=== PATIENT | female | born 1980 | race Caucasian/White ===

== ENCOUNTER → 2019-06-13 | Outpatient (CLI) | payer OTHER ==
[2019-06-13 13:20] LABS: BASO % 0.4 % (0.0-1.0); EOS # 0.3 10*3/uL (0.0-0.4); HEMATOCRIT 40.4 % (37.0-47.0); HEMOGLOBIN 13.4 g/dl (12.0-16.0); LYMPH # 1.6 10*3/uL (1.3-4.4); LYMPH % 22.6 % (27.0-41.0); MEAN CELL VOLUME 90.2 fl (81.0-99.0); MEAN CORPUSCULAR HGB 29.9 pg (27.0-31.0); MEAN CORPUSCULAR HGB CONC 33.2 g/dl (33.0-37.0); MEAN PLATELET VOLUME 9.5 fl (9.6-12.3); MONO # 0.6 10*3/uL (0.1-1.0); NEUT # 4.5 10*3/uL (2.3-7.9); NEUT % 63.7 % (47.0-73.0); PLATELET COUNT AUTOMATED 320 10*3/uL (130-400); RED BLOOD COUNT 4.48 10*6/uL (4.10-5.10); RED CELL DISTRI WIDTH 13.3 % (0-14.5); RETICULOCYTE % 1.95 % (0.50-2.50); WHITE BLOOD COUNT 7.1 10*3/uL (4.8-10.8)
[2019-06-13 13:48] LABS: BACTERIA 3+; EPITHELIAL CELLS 15-20; MUCOUS 2+
[2019-06-13 13:49] LABS: BILIRUBIN NEGATIVE (NEGATIVE); CLARITY CLOUDY (CLEAR); COLOR YELLOW (YELLOW); GLUCOSE NEGATIVE (NEGATIVE); KETONE NEGATIVE (NEGATIVE)
[2019-06-13 13:50] LABS: ALBUMIN 3.5 gm/dl (3.1-4.5); ALKALINE PHOSPHATASE 163 U/L (45-117); BLOOD 3+ (NEGATIVE); BUN 11 mg/dl (7-24); CHLORIDE 109 mmol/L (98-107); CHOLESTEROL 172 mg/dL (<200); CREATININE 1.16 mg/dL (0.55-1.02); GAMMA GLUTAMYL TRANSPEPTIDASE 93 U/L (5-55); HDL CHOLESTEROL 36 mg/dl (40-60); IRON 46 ug/dL (50-170); LDL CHOLESTEROL 103 mg/dL (9-159); NITRITE NEGATIVE (NEGATIVE); SGOT/AST 21 IU/L (3-35); SGPT/ALT 55 U/L (12-78); SODIUM 139 mmol/L (136-145); T3 UPTAKE 29 % (31-39); THYROXINE (T4) TOTAL 9.4 ug/dl (4.8-13.9); TOTAL IRON BINDING CAPACITY 279 ug/dl (250-450); TOTAL PROTEIN 7.8 gm/dL (6.4-8.2); TRIGLYCERIDES 164 mg/dl (<150); UROBILINOGEN 0.2 E.U./dl (0.2-1.0); VLDL CHOLESTEROL 33 mg/dL (6-40)
[2019-06-13 13:51] LABS: LEUKO ESTERASE 1+ (NEGATIVE)
[2019-06-13 14:07] LABS: FERRITIN 83.4 ng/mL (10.0-291.0); VITAMIN D, 25-HYDROXY 12.2 ng/mL (30-100)
[2019-06-14 05:05] LABS: RHEUMATOID ARTHRITIS FACTOR <10.0 IU/mL (0.0-13.9)
[2019-06-14 12:05] LABS: ANTI-DSDNA ANTIBODIES 096339 <1 IU/mL (0-9)
== END | disposition home or self-care (01) ==
LOC: LAB 12:48
PROVIDERS: Family Medicine
DX: R79.89 Other specified abnormal findings of blood chemistry (principal); R53.83 Other fatigue; R74.8 Abnormal levels of other serum enzymes; E55.9 Vitamin D deficiency, unspecified

== ENCOUNTER → 2019-06-19 | Outpatient (CLI) | payer OTHER ==
[2019-06-20 08:08] LABS: RHEUMATOID ARTHRITIS FACTOR 10.2 IU/mL (0.0-13.9)
[2019-06-20 13:06] LABS: ANTI-DSDNA ANTIBODIES 096339 <1 IU/mL (0-9)
== END | disposition home or self-care (01) ==
LOC: LAB 12:17
PROVIDERS: Family Medicine
DX: E55.9 Vitamin D deficiency, unspecified (principal); R53.83 Other fatigue; R79.89 Other specified abnormal findings of blood chemistry

== ENCOUNTER 2024-04-08 01:03 | Inpatient (IN) | payer SELFPAY ==
[2024-04-08] VITALS (7 sets, daily range): BP systolic 115–168; BP diastolic 58–105
[~2024-04-08] VITALS: Ht 157.5 cm; Wt 101.7 kg
[2024-04-08 01:33] LABS: BASO # 0.1 10*3/uL (0.0-0.1); BASO % 0.5 % (0.0-1.0); EOS # 0.2 10*3/uL (0.0-0.4); EOS % 1.8 % (1.0-4.0); HEMATOCRIT 41.3 % (37.0-47.0); MEAN CELL VOLUME 89.4 fl (81.0-99.0); MEAN CORPUSCULAR HGB 28.8 pg (27.0-31.0); MEAN CORPUSCULAR HGB CONC 32.2 g/dl (33.0-37.0); MEAN PLATELET VOLUME 9.6 fl (9.6-12.3); MONO # 0.8 10*3/uL (0.1-1.0); MONO % 7.4 % (3.0-9.0); NEUT # 7.1 10*3/uL (2.3-7.9); NEUT % 68.6 % (47.0-73.0); PLATELET COUNT AUTOMATED 305 10*3/uL (130-400); RED BLOOD COUNT 4.62 10*6/uL (4.10-5.10); WHITE BLOOD COUNT 10.3 10*3/uL (4.8-10.8)
[2024-04-08 01:47] LABS: ACT PARTIAL THROMBO TIME 23.2 SECONDS (20.0-32.1)
[2024-04-08 01:53] LABS: BUN 14 mg/dl (9-23); CHLORIDE 107 mmol/L (98-107); POTASSIUM 3.5 mmol/L (3.4-5.1)
[2024-04-08] MEDS ORDERED: SODIUM CHLORIDE 0.9% 1,000 ML IV ONE (02:00)
[2024-04-08] MEDS ORDERED: ACETAMINOPHEN 325 MG TAB PO PRN (02:35)
[2024-04-08] MEDS ORDERED: BISACODYL 5 MG TAB PO PRN (02:35)
[2024-04-08] MEDS ORDERED: ACETAMINOPHEN 650 MG SUPP R PRN (02:35)
[2024-04-08] MEDS ORDERED: TEMAZEPAM 15 MG CAP PO PRN (02:35)
[2024-04-08] MEDS ORDERED: Acetaminophen/Hydrocodone 5 MG/325 MG TABLET PO PRN (02:35)
[2024-04-08] MEDS ORDERED: Ondansetron Hydrochloride 4 MG/2 ML VIAL IV PRN (02:35)
[2024-04-08] MEDS ORDERED: MORPHINE Sulfate 2 MG/ML SYR IV PRN (02:35)
[2024-04-08] MEDS ORDERED: BISACODYL 10 MG SUPP R PRN (02:35)
[2024-04-08] MEDS ORDERED: Magnesium Hydroxide 30 ML UDC PO PRN (02:35)
[2024-04-08] MEDS ORDERED: IOHEXOL 350 MG/ML 100 ML VIAL IV ONE (02:40)
[2024-04-08] MEDS ORDERED: SODIUM CHLORIDE 0.9% 100 ML BAG IV ONE (02:40)
[2024-04-08 03:09] LABS: BILIRUBIN Negative (Negative); BLOOD Negative (Negative); CLARITY Cloudy (Clear); COLOR Yellow (Yellow); GLUCOSE Negative (Negative); KETONE Negative (Negative); LEUKO ESTERASE 3+ (Negative); NITRITE Negative (Negative); SPECIFIC GRAVITY 1.015 (1.001-1.030); UROBILINOGEN 0.2 E.U./dl (0.0-1.0)
[2024-04-08 03:17] LABS: BACTERIA 2+; EPITHELIAL CELLS 31-40; URINE AMPHETAMINES Negative (1000ng/ml); URINE BARBITURATES Negative (200ng/ml); URINE BENZODIAZEPINES Negative (200ng/ml); URINE CANNABINOIDS (THC) Positive (50ng/ml); URINE COCAINE Negative (300ng/ml); URINE METHADONE Negative (300ng/ml); URINE OPIATES Negative (300ng/ml); URINE PHENCYCLIDINE Negative (25ng/ml); WBC 41-50 wbc/hpf (0-5)
[2024-04-08 03:22] LABS: BASO % 0.4 % (0.0-1.0); EOS % 0.2 % (1.0-4.0); HEMATOCRIT 41.1 % (37.0-47.0); MEAN CELL VOLUME 89.9 fl (81.0-99.0); MEAN CORPUSCULAR HGB 29.3 pg (27.0-31.0); MEAN CORPUSCULAR HGB CONC 32.6 g/dl (33.0-37.0); MEAN PLATELET VOLUME 9.7 fl (9.6-12.3); MONO # 0.4 10*3/uL (0.1-1.0); MONO % 3.6 % (3.0-9.0); NEUT # 9.7 10*3/uL (2.3-7.9); PLATELET COUNT AUTOMATED 308 10*3/uL (130-400); RED BLOOD COUNT 4.57 10*6/uL (4.10-5.10); RED CELL DISTRI WIDTH 13.1 % (0-14.5); WHITE BLOOD COUNT 11.3 10*3/uL (4.8-10.8)
[2024-04-08] MEDS ORDERED: SODIUM CHLORIDE 0.9% 500 ML IV ONE (03:45)
[2024-04-08 03:48] LABS: ACT PARTIAL THROMBO TIME 23.8 SECONDS (20.0-32.1)
[2024-04-08 04:05] LABS: ALKALINE PHOSPHATASE 103 U/L (46-116); BUN 13 mg/dl (9-23); CHLORIDE 108 mmol/L (98-107); CHOLESTEROL 161 mg/dL (<200); FREE T4 0.91 ng/dl (0.89-1.76); LDL CHOLESTEROL 101 mg/dL (9-159); POTASSIUM 3.9 mmol/L (3.4-5.1); SGPT/ALT 25 U/L (5-49); TOTAL PROTEIN 7.4 gm/dL (6.0-8.0); TRIGLYCERIDES 72 mg/dl (<150)
[2024-04-08] MEDS ORDERED: Ceftriaxone Sodium 1 GM in SYRINGE INFUSION 10 ML IV SCH (05:00)
[2024-04-08] MEDS ORDERED: LORazepam 2 MG/ML VIAL IV ONE (05:20)
[2024-04-08 07:27] LABS: VITAMIN D, 25-HYDROXY 26.7 ng/mL (30-100)
[2024-04-08] MEDS ORDERED: Labetalol Hydrochloride 20 MG/4 ML SYR IV ONE (07:35)
[2024-04-08] MEDS ORDERED: Phosphorus/Potassium 1.45 GM PACKET PO SCH (08:00)
[2024-04-08] MEDS ORDERED: Enoxaparin Sodium 100 MG/ML SYR SC SCH (10:00)
[2024-04-08] MEDS ORDERED: Enoxaparin Sodium 40 MG/0.4 ML SYR SC SCH (10:00)
[2024-04-08] MEDS ORDERED: LORazepam 0.5 MG TAB PO ONE (16:05)
[2024-04-08] MEDS ORDERED: ZOLPIDEM TARTRATE 5 MG TAB PO PRN (16:35)
[2024-04-09] VITALS: BP 142/82
[2024-04-09] MEDS ORDERED: Levothyroxine Sodium 25 MCG TAB PO SCH (06:00)
[2024-04-09 06:43] LABS: BASO % 0.5 % (0.0-1.0); EOS # 0.2 10*3/uL (0.0-0.4); EOS % 4.1 % (1.0-4.0); HEMATOCRIT 38.7 % (37.0-47.0); MEAN CELL VOLUME 91.5 fl (81.0-99.0); MEAN CORPUSCULAR HGB 29.1 pg (27.0-31.0); MEAN CORPUSCULAR HGB CONC 31.8 g/dl (33.0-37.0); MEAN PLATELET VOLUME 9.6 fl (9.6-12.3); MONO # 0.5 10*3/uL (0.1-1.0); MONO % 8.6 % (3.0-9.0); NEUT # 3.2 10*3/uL (2.3-7.9); NEUT % 55.2 % (47.0-73.0); PLATELET COUNT AUTOMATED 241 10*3/uL (130-400); RED BLOOD COUNT 4.23 10*6/uL (4.10-5.10); RED CELL DISTRI WIDTH 13.3 % (0-14.5); WHITE BLOOD COUNT 5.8 10*3/uL (4.8-10.8)
[2024-04-09 07:15] LABS: BUN 7 mg/dl (9-23); CHLORIDE 109 mmol/L (98-107); POTASSIUM 3.9 mmol/L (3.4-5.1)
[2024-04-09 08:00] VITALS: BP 125/69
[2024-04-09] MEDS ORDERED: ONDANSETRON HYDR4 MG PO (09:44)
[2024-04-09] MEDS ORDERED: Synthroid,Levo25 MCG PO (09:44)
[2024-04-09] MEDS ORDERED: VITAMIN D350 MCG PO (09:44)
[2024-04-09] MEDS ORDERED: ATARAX,VISTARIL50 MG PO (09:44)
[2024-04-09] MEDS ORDERED: Cholecalciferol 2,000 UNIT TABLET (50 MCG) PO SCH (10:00)
[2024-04-09] MEDS ORDERED: BACTRIM 400-801 EACH PO (16:38)
== END 2024-04-09 12:25 | disposition home or self-care (01) | DRG 689 ==
LOC: ED 01:03 → EDHOLD 02:18 → 4E 19:08
PROVIDERS: Internal Medicine; Student in an Organized Health Care Education/Training Program; ADMIT Internal Medicine; ATTEND Internal Medicine
DX: N30.00 Acute cystitis without hematuria (principal); N17.0 Acute kidney failure with tubular necrosis; Z68.41 Body mass index [BMI] 40.0-44.9, adult; F41.9 Anxiety disorder, unspecified; R73.9 Hyperglycemia, unspecified; E03.9 Hypothyroidism, unspecified; R07.9 Chest pain, unspecified; Z90.49 Acquired absence of other specified parts of digestive tract; Z98.51 Tubal ligation status; Z82.49 Family history of ischemic heart disease and other diseases of the circulatory system

== ENCOUNTER 2024-05-28 03:02 | Emergency (ER) | payer SELFPAY ==
[~2024-05-28] VITALS: Ht 167.6 cm; Wt 97.5 kg
[~2024-05-28 03:02] MED LIST: ATARAX,VISTARIL50 MG PO; BACTRIM 400-801 EACH PO; ONDANSETRON HYDR4 MG PO; Synthroid,Levo25 MCG PO; VITAMIN D350 MCG PO
[2024-05-28 03:21] LABS: BASO % 0.4 % (0.0-1.0); EOS # 0.2 10*3/uL (0.0-0.4); EOS % 1.6 % (1.0-4.0); HEMATOCRIT 44.8 % (37.0-47.0); MEAN CELL VOLUME 88.9 fl (81.0-99.0); MEAN CORPUSCULAR HGB CONC 32.6 g/dl (33.0-37.0); MEAN PLATELET VOLUME 10.2 fl (9.6-12.3); MONO # 0.7 10*3/uL (0.1-1.0); MONO % 6.3 % (3.0-9.0); NEUT # 7.9 10*3/uL (2.3-7.9); PLATELET COUNT AUTOMATED 298 10*3/uL (130-400); RED BLOOD COUNT 5.04 10*6/uL (4.10-5.10); WHITE BLOOD COUNT 10.7 10*3/uL (4.8-10.8)
[2024-05-28 03:42] LABS: ALKALINE PHOSPHATASE 84 U/L (46-116); BUN 15 mg/dl (9-23); CHLORIDE 107 mmol/L (98-107); POTASSIUM 3.5 mmol/L (3.4-5.1); SGPT/ALT 24 U/L (5-49); TOTAL PROTEIN 7.8 gm/dL (6.0-8.0)
[2024-05-28 03:45] LABS: ACT PARTIAL THROMBO TIME 25.1 SECONDS (20.0-32.1)
[2024-05-28] MEDS ORDERED: Ondansetron Hydrochloride 4 MG TAB PO ONE (03:55)
[2024-05-28] MEDS ORDERED: LORazepam 1 MG TAB PO ONE (04:20)
== END 2024-05-28 05:50 | disposition home or self-care (01) ==
LOC: ED 03:02
PROVIDERS: Emergency Medicine
DX: R00.2 Palpitations (principal); F41.9 Anxiety disorder, unspecified; E03.9 Hypothyroidism, unspecified; Z79.899 Other long term (current) drug therapy; Z90.49 Acquired absence of other specified parts of digestive tract; Z98.51 Tubal ligation status

== ENCOUNTER → 2024-07-28 | Outpatient (CLI) | payer SELFPAY ==
[2024-07-28 18:30] LABS: BASO # 0.1 10*3/uL (0.0-0.1); BASO % 0.9 % (0.0-1.0); EOS # 0.2 10*3/uL (0.0-0.4); EOS % 2.8 % (1.0-4.0); HEMATOCRIT 46.2 % (37.0-47.0); MEAN CELL VOLUME 88.2 fl (81.0-99.0); MEAN CORPUSCULAR HGB 28.2 pg (27.0-31.0); MEAN PLATELET VOLUME 10.8 fl (9.6-12.3); MONO # 0.5 10*3/uL (0.1-1.0); MONO % 7.8 % (3.0-9.0); NEUT # 4.1 10*3/uL (2.3-7.9); NEUT % 61.3 % (47.0-73.0); PLATELET COUNT AUTOMATED 335 10*3/uL (130-400); RED BLOOD COUNT 5.24 10*6/uL (4.10-5.10); RED CELL DISTRI WIDTH 12.7 % (0-14.5); WHITE BLOOD COUNT 6.7 10*3/uL (4.8-10.8)
[2024-07-28 18:42] LABS: ALKALINE PHOSPHATASE 96 U/L (46-116); BUN 13 mg/dl (9-23); CHLORIDE 106 mmol/L (98-107); POTASSIUM 4.2 mmol/L (3.4-5.1); SGPT/ALT 20 U/L (5-49); TOTAL PROTEIN 7.6 gm/dL (6.0-8.0)
[2024-07-28 18:58] LABS: FREE T4 1.52 ng/dl (0.89-1.76)
== END | disposition home or self-care (01) ==
LOC: LAB 14:25
PROVIDERS: ATTEND Nurse Practitioner Family
DX: F41.9 Anxiety disorder, unspecified (principal); E03.9 Hypothyroidism, unspecified

== ENCOUNTER → 2024-09-24 | Outpatient (CLI) | payer SELFPAY | END | disposition home or self-care (01) | LOC: US 08:56 | PROVIDERS: ATTEND Nurse Practitioner Family | DX: E07.89 Other specified disorders of thyroid (principal); E03.9 Hypothyroidism, unspecified ==

== ENCOUNTER → 2024-10-14 | Outpatient (CLI) | payer SELFPAY | END | disposition home or self-care (01) | LOC: MAMMO 13:14 | PROVIDERS: ATTEND Nurse Practitioner Family | DX: Z12.31 Encounter for screening mammogram for malignant neoplasm of breast (principal); Z00.00 Encounter for general adult medical examination without abnormal findings; R92.313 Mammographic fatty tissue density, bilateral breasts ==

== ENCOUNTER → 2024-12-08 | Outpatient (CLI) | payer SELFPAY ==
[2024-12-08 17:38] LABS: BUN 15 mg/dl (9-23); FREE T4 1.00 ng/dl (0.89-1.76); SGPT/ALT 21 U/L (5-49)
== END | disposition home or self-care (01) ==
LOC: LAB 13:59
PROVIDERS: ATTEND Nurse Practitioner Family
DX: E03.9 Hypothyroidism, unspecified (principal); N28.9 Disorder of kidney and ureter, unspecified; E56.9 Vitamin deficiency, unspecified; F41.9 Anxiety disorder, unspecified

== ENCOUNTER → 2025-03-02 | Outpatient (CLI) | payer SELFPAY ==
[2025-03-02 17:14] LABS: BASO # 0.0 10*3/uL (0.0-0.1); BASO % 0.5 % (0.0-1.0); EOS # 0.3 10*3/uL (0.0-0.4); EOS % 3.8 % (1.0-4.0); MEAN CELL VOLUME 89.6 fl (81.0-99.0); MEAN CORPUSCULAR HGB 28.7 pg (27.0-31.0); MEAN PLATELET VOLUME 10.2 fl (9.6-12.3); MONO # 0.6 10*3/uL (0.1-1.0); MONO % 7.9 % (3.0-9.0); NEUT # 4.4 10*3/uL (2.3-7.9); NEUT % 59.5 % (47.0-73.0); NUCLEATED RED BLOOD CELL 0.0 % (0.0-0.0); NUCLEATED RED BLOOD CELL 0.0 10*3/uL (0.0-0.0); PLATELET COUNT AUTOMATED 288 10*3/uL (130-400); RED CELL DISTRI WIDTH 13.2 % (0-14.5)
[2025-03-02 17:45] LABS: BUN 9 mg/dl (9-23); SGPT/ALT 16 U/L (5-49)
[2025-03-03 16:14] LABS: FREE T4 1.11 ng/dl (0.89-1.76)
== END | disposition home or self-care (01) ==
LOC: LAB 14:43
PROVIDERS: ATTEND Nurse Practitioner Family
DX: R55 Syncope and collapse (principal); E03.9 Hypothyroidism, unspecified